=== PATIENT | male | born 2000 | race Caucasian/White ===

== ENCOUNTER 2025-05-12 10:48 | Emergency (ER) | payer OTHER ==
[2025-05-12 11:35] LABS: BASOPHILS ABSOLUTE AUTO 0.03 K/uL (0.00-0.20); BASOPHILS PERCENT AUTO 0.6 % (0.0-2.0); EOSINOPHILS ABSOLUTE AUTO 0.11 K/uL (0.00-0.50); EOSINOPHILS PERCENT AUTO 2.0 % (0.0-5.0); IMMATURE GRAN ABSOLUTE AUTO 0.01 10^3/uL (0.00-0.04); IMMATURE GRAN PERCENT AUTO 0.2 % (0.0-0.4); LYMPHOCYTES ABSOLUTE AUTO 1.61 K/uL (0.50-3.50); LYMPHOCYTES PERCENT AUTO 29.8 % (10.0-50.0); MONOCYTES ABSOLUTE AUTO 0.63 K/uL (0.00-1.00); MONOCYTES PERCENT AUTO 11.7 % (2.0-14.0); NEUTROPHILS ABSOLUTE AUTO 3.01 K/uL (1.40-7.00); NEUTROPHILS PERCENT AUTO 55.7 % (45.0-80.0); PLATELET COUNT,PLT 327 K/uL (150-350); RED BLOOD CELL COUNT 5.02 M/uL (4.33-5.41); RED CELL DISTRIBUTION WIDTH 12.7 % (11.2-14.1); WHITE BLOOD CELL COUNT,WBC 5.4 K/uL (4.0-10.2)
[2025-05-12 11:37] LABS: ALANINE AMINOTRANSFERASE,ALT 40 U/L (12-78); ASPARTATE AMNIOTRANSFERASE,AST 19 U/L (15-37); BILIRUBIN TOTAL 0.9 mg/dL (0.2-1.0); BLOOD UREA NITROGEN,BUN 14 mg/dL (7-18); CARBON DIOXIDE,CO2 28.8 mmol/L (21.0-32.0); CHLORIDE,CL 106 mmol/L (98-107); CREATININE 0.95 mg/dL (0.51-1.17); ESTIMATED GFR 114 mL/min (>=60); GLUCOSE RANDOM 98 mg/dL (70-99); POTASSIUM,K 4.2 mmol/L (3.5-5.1); PROTEIN TOTAL,TP 7.6 g/dL (6.4-8.2); SODIUM,NA 143 mmol/L (136-145)
[2025-05-12] MEDS: Ondansetron 4 MG/2 ML SDV IVPUSH ONE (11:47)
[2025-05-12] MEDS: Ketorolac 15 MG/ML SDV IVPUSH ONE (12:14)
[2025-05-12] MEDS: Bacitracin Oint 1 GM U/D Packet TOP ONE (12:14)
== END 2025-05-12 12:35 | disposition home or self-care (01) ==
LOC: LL.ED 10:48
DX: R51.9 Headache, unspecified (principal); V89.2XXA Person injured in unspecified motor-vehicle accident, traffic, initial encounter
CPT/HCPCS: 12002; 12011; 36415; 70450; 72125; 80053; 85025; 96374; 96375; 99284-25; A9270-GY; J1885; J2405